=== PATIENT | male | born 1970 | race Caucasian/White ===

== ENCOUNTER 2022-02-10 16:03 | Emergency (ER) | payer SELFPAY ==
[2022-02-10] MEDS ORDERED: Ondansetron PF 4 MG/2 ML Vial ONE (16:52)
[2022-02-10 16:55] LABS: #Basophils 0.1 10x3/uL (0.0-0.2); #Monocytes 0.3 10x3/uL (0.0-1.1); #Neutrophils 3.3 10x3/uL (1.5-8.4); %Basophils 0.8 % (0.0-2.0); %Eosinophils 0.5 % (0.0-6.0); %Lymphocytes 40.7 % (18.0-47.0); %Monocytes 4.5 % (0.0-10.0); %Neutrophils 53.3 % (40.0-75.0); Hemoglobin 14.6 g/dL (13.5-17.5); Mean Corpuscular Hemoglobin 35.4 pg (27.0-33.0); Mean Platelet Volume 9.6 fl (7.4-10.4); Platelet Count 287 10x3/uL (150-450); RBC Distribution Width 12.5 % (11.5-14.5); Red Blood Cell (RBC) Count 4.13 10x6/uL (4.32-5.72); White Blood Cell (WBC) Count 6.2 10x3/uL (3.5-10.5)
[2022-02-10 17:06] LABS: Acetaminophen Less than 10.0 mcg/mL (10.0-30.0); Alcohol 321 mg/dL (Less than 10); Salicylate Less than 8.0 mg/dL (15.0-30.0)
[2022-02-10 17:07] LABS: ALT (SGPT) 54 U/L (8-55); AST (SGOT) 71 U/L (5-34); Albumin 4.2 g/dL (3.5-5.0); Alkaline Phosphatase 131 U/L (40-110); Anion Gap 23 mmol/L (10-20); BUN (Urea Nitrogen) 5 mg/dL (8.4-25.7); Bilirubin, Total 0.7 mg/dL (0.2-1.2); Calc. Creatinine Clearance 0 mL/min (70-130); Carbon Dioxide 20 mmol/L (22-29); Chloride 105 mmol/L (98-107); Glucose 83 mg/dL (70-105); Lipase 39 U/L (8-78); Protein, Total 7.2 g/dL (6.0-8.3); Sodium 144 mmol/L (136-145)
[2022-02-10 17:45] LABS: Bilirubin Neg (Negative); Blood, Urine Negative (Negative); Clarity Clear (Clear); Glucose, Urine (Dipstick) Normal (Negative); Ketone, Urine Negative (Negative); Leukocyte Negative (Negative); Nitrite Negative (Negative); Protein, Urine (Dipstick) Negative (Neg-Trace); Specific Gravity, Urine 1.015 (1.002-1.036); Urobilinogen Normal mg/dL (Less than 2)
[2022-02-10] MEDS ORDERED: Folic Acid 1 MG, Multivitamins, Adult 10 ML in Dextrose 5 %-0.45 % NaCl 1,000 ML IV SCH (18:00)
[2022-02-10] MEDS ORDERED: Thiamine HCl 200 MG/2 ML VIAL SLOW IVP SCH (18:00)
[2022-02-10] MEDS ORDERED: Lorazepam 1 MG TAB ONE (18:29)
== END 2022-02-10 21:18 | disposition home or self-care (01) ==
LOC: CSHERS 16:03
DX: F10.129 Alcohol abuse with intoxication, unspecified (principal); Z87.891 Personal history of nicotine dependence
CPT/HCPCS: 80053; 80307; 81003; 83690; 85025; 93005; 96374; 96375; J2405; J7042